=== PATIENT | female | born 1985 | race Hispanic/Latino ===

== ENCOUNTER 2018-04-21 16:57 | Inpatient (IN) | payer OTHER ==
[2018-04-21 17:22] VITALS: BP 120/68
[2018-04-21] MEDS ORDERED: COLACE PO PRN (19:08)
[2018-04-21] MEDS ORDERED: SODIUM CHLORIDE FLUSH SYRINGE 10 ML IV PRN (19:08)
[2018-04-21] MEDS ORDERED: TYLENOL PO PRN (19:08)
[2018-04-21] MEDS ORDERED: ALUM-MAG HYDROX-SIMETH 200-200-20MG/5ML PO PRN (19:08)
--- NOTE | 2018-04-21 19:08 | History and Physical Report ---
History of Present Illness Date of examination: 04/21/18 Date of admission: 04/21/18 16:57 Chief complaint: withdrawl symptoms History of present illness: Pt presents to office visit today for routine visits and admits to h/o oxycodone use for the past year daily and during and she did not reveal this until today in the office. She has been getting routine care, however, providers were not aware of her drug use. The facility where she was getting her drugs was "closed when I went on Tuesday" and she had not taken any medications since this time. She c/o having nausea, diarrhea, feeling her skin crawling,and body aches. Pt d/w Dr. Deras when recommended admission for initiation of treatment and subsequent placement in treatment facility. Methadone 30mg q day is what is recommended as starting dose by MFM(full consultation to follow.) Pt also a dvised of treatment plan. Her family including FOC is not aware of her use and with drawl sx nor reason for admission at time of visit in the office. She was encouraged to d/w with family so that she may have the support that is needed for treatment and the . She expressed understanding and states she would discuss with her family. EDC Calculations LMP: 08/25/2018 EDC Confirmation: 08/25/2018 Gestational Age: 12 4/7 weeks Past History : 2 Term Births: 0 Premature Births: 0 Living Children: 0 Para: 0 Mult. Births: 0 Prev : 0 Aborta: 1 Elect. Ab: 0 Spont. Ab: 1 # 1 Delivery date: 2014 Weeks Gestation: 8 Delivery type: SAB Comments: No D&C done Past Medical History: Scoliosis Past Surgical History: Negative Past Surgical History Social History: Marital Status: Engaged Children: 0 Occupation: Unemployed Risk Factors: Smoked Tobacco Use: Never smoker Alcohol use: yes Drinks per day: social Past Medical History Surgery (Non-rn training): Negative Past Surgical History Abnormal PAP: negative HERNAN Exposure: negative Infertility: negative Uterine Anomaly: negative Uterine Surgery (not C/S): negative Other Gynecologic Problems: negative Social Hx: Marital Status: Engaged Children: 0 Occupation: Unemployed Past History Past Medical History: other (see hpi) Past Surgical History: other (see hpi) [employer] SALES History: other (see hpi) Social history: single (engaged), prescription drug abuse - Obstetrical History Expected Date of Delivery: 08/25/18 Actual Gestation: 22 Week(s) 0 Day(s) : 2 Medications and Allergies Allergies Allergy/AdvReac Type Severity Reaction Status Date / Time Penicillins Allergy Angioedema Verified 04/21/18 18:50 Home Medications Medication Instructions Recorded Confirmed Last Taken Type Formula Tablet 1 tab PO BID 04/21/18 04/21/18 04/21/18 11:00 History - Vital Signs Vital signs: Vital Signs Pulse Pulse Ox 78 97 04/21/18 17:18 04/21/18 17:18 Temp Pulse Resp BP Pulse Ox 83 120/68 96 04/21/18 18:33 04/21/18 17:21 04/21/18 18:33 - Physical Exam Cardiovascular: Normal S1, Normal S2 Lungs: Positive: Clear to auscultation, Normal air movement Abdomen: Positive: normal appearance, soft. Negative: distention, tenderness, guarding Genitourinary (Female): Positive: other (deferred) Results All other labs normal. Assessment and Plan - Patient Problems (1) 22 weeks gestation of Current Visit: Yes Status: Acute (2) Opioid use with withdrawal Current Visit: Yes Status: Acute Plan to address problem: -MFM CONSULTATION -PSYCH CONSULTATION -WILL START METHADONE 30MG Q DAY PER MFM RECOMMENDATIONS BY DR. DERAS (FULL CONSUL TO FOLLOW)
[2018-04-21] MEDS ORDERED: REGLAN IV PRN (19:14)
[2018-04-21] MEDS ORDERED: LACTATED RINGERS 1,000 ML IV SCH (20:00)
[2018-04-21] MEDS ORDERED: DOLOPHINE PO SCH (21:00)
--- NOTE | 2018-04-21 21:26 | Event Note ---
Date: 04/21/18 RN went to [facility] and get pt labs and she was not in the room. The hospital gown was in the room and all of pt belongings were gone. This was over an hour ago. Pt still has not returned to the room. Methadone came down from pharm and pharmacy personel was advised pt is gone and will be called back for the meds should she return. He expressed understanding and made note of this. I will attempt to call pt to find out where she has gone to. She was in the room almost an hour prior to leaving the room.
[2018-04-22] MEDS ORDERED: PRENATAL VITAMIN PO SCH (10:00)
== END 2018-04-21 20:00 | disposition home or self-care (01) | DRG 781 ==
LOC: LD 16:57 → UNDODISIN 20:00
PROVIDERS: ADMIT Obstetrics & Gynecology; ATTEND Obstetrics & Gynecology
DX: O99.321 Drug use complicating pregnancy, first trimester (principal); F11.93 Opioid use, unspecified with withdrawal; Z3A.12 12 weeks gestation of pregnancy; Z88.0 Allergy status to penicillin
CPT/HCPCS: G0378; J7120

== ENCOUNTER 2018-05-02 17:24 | Outpatient (CLI) | payer OTHER ==
[2018-05-02] MEDS ORDERED: LACTATED RINGERS 500 ML IV ONE (18:17)
[2018-05-02 19:30] LABS: Bilirubin,Urine NEG (Negative); Blood,Urine NEG (Negative); Color,Urine Straw (Yellow); Protein,Urine <15 mg/dL mg/dL (Negative); Urobilinogen,Urine < 2.0 mg/dL (<2.0)
[2018-05-02 20:28] VITALS: BP 114/56
[2018-05-02] MEDS ORDERED: TYLENOL PO ONE (21:09)
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
== END 2018-05-02 22:10 | disposition home or self-care (01) ==
LOC: TRG 17:24
PROVIDERS: ATTEND Obstetrics & Gynecology
DX: O9A.212 Injury, poisoning and certain other consequences of external causes complicating pregnancy, second trimester (principal); Z3A.23 23 weeks gestation of pregnancy
CPT/HCPCS: 76815; 81001; 86850; 86900; 86901

== ENCOUNTER 2018-08-12 10:34 | Inpatient (IN) | payer OTHER ==
[2018-08-12 11:36] LABS: Hematocrit 34.1 % (30.3-42.9); Hemoglobin 11.7 gm/dl (10.1-14.3); Mean Corpuscular HGB Conc 34 % (30-34); Mean Corpuscular Volume 90 fl (79-97); Platelet Count 231 K/mm3 (140-440); Red Cell Distribution Width 13.9 % (13.2-15.2)
[2018-08-12] MEDS ORDERED: LACTATED RINGERS 1,000 ML ONE (11:56)
--- NOTE | 2018-08-12 11:59 | History and Physical Report ---
History of Present Illness Date of examination: 08/12/18 Date of admission: 08/12/18 10:34 History of present illness: Patient presents to labor and delivery with complaints of ruptured membranes at approximately 0500. initial exam in triage by RN revealed grossly ruptured membranes with cervix dilated 3 cm. Patient's course complicated by opiate withdrawal and positive cannabis on urine drug. Menstrual History Regularity: regular Duration: 4-5 LMP: 11/18/2017 LMP reliability: definite LMP character: normal test type: urine test Date: 02/14/2018 BC at conception: none Planned ? no EDC Calculations LMP: 08/25/2018 EDC Confirmation: 08/25/2018 Past History : 2 Term Births: 0 Premature Births: 0 Living Children: 0 Para: 0 Mult. Births: 0 Prev : 0 Aborta: 1 Elect. Ab: 0 Spont. Ab: 1 # 1 Delivery date: 2014 Weeks Gestation: 8 Delivery type: SAB Comments: No D&C done Past Medical History: Scoliosis Past Surgical History: Negative Past Surgical History Social History: Marital Status: Engaged Children: 0 Occupation: Unemployed Risk Factors: Smoked Tobacco Use: Never smoker Alcohol use: yes Drinks per day: social Past Medical History Surgery (Non-purchasing intern): Negative Past Surgical History Abnormal PAP: negative HERNAN Exposure: negative Infertility: negative Uterine Anomaly: negative Uterine Surgery (not C/S): negative Other Gynecologic Problems: negative Social Hx: Marital Status: Engaged Children: 0 Occupation: Unemployed Infection History Hx of STD: none Genetic History Congenital Heart Defect: Mom: no Dad: no Mahogany Disease: Mom: no Dad: no Thalassemia Mom: no Dad: no Neural Tube Defect Mom: no Dad: no Down's Syndrome Mom: no Dad: no Jb-Sachs Mom: no Dad: no Sickle Cell Disease/Trait Mom: no Dad: no Hemophilia Mom: no Dad: no Muscular Dystrophy Mom: no Dad: no Cystic Fibrosis Mom: no Dad: no Millard Chorea Mom: no Dad: no Mental Retardation Mom: no Dad: no Fragile X Mom: no Dad: no Other Genetic/Chromosomal Disorder Mom: no Dad: no Child w/other defect Mom: no Dad: no Enviromental Exposures Xray Exposure: no Medication, drug, or alcohol use since LMP: no Chemical/Other Exposure: no Exposure to Cat Liter: no Hx of Parvovirus (Fifth Disease): no Current Allergies (reviewed today): * PENICILLIN (Critical) Past History Past Medical History: other (see HPI) Past Surgical History: other (see HPI) APPLIQUER History: other (see HPI) Family/Genetic History: other (see HPI) Social history: prescription drug abuse, full code - Obstetrical History Expected Date of Delivery: 08/25/18 Actual Gestation: 38 Week(s) 1 Day(s) : 2 Para: 0 Hx # Term Pregnancies: 0 Number of Pregnancies: 0 Spontaneous Abortions: 1 Induced : 0 Number of Living Children: 0 Medications and Allergies Allergies Allergy/AdvReac Type Severity Reaction Status Date / Time Penicillins Allergy Angioedema Verified 04/21/18 18:50 Home Medications Medication Instructions Recorded Confirmed Last Taken Type Formula Tablet 1 tab PO BID 04/21/18 04/21/18 04/21/18 11:00 History - Vital Signs Vital signs: Vital Signs Temp 98.2 F 08/12/18 11:46 Temp Pulse Resp BP Pulse Ox 98.2 F 96 H 133/80 08/12/18 11:46 08/12/18 11:49 08/12/18 11:49 - Physical Exam Breasts: Positive: deferred Cardiovascular: Regular rate Lungs: Positive: Normal air movement Abdomen: Positive: normal appearance, soft Cervix: Positive: other (per RN) Results Result Diagrams: 08/12/18 11:25 All other labs normal. Assessment and Plan - Patient Problems (1) 38 weeks gestation of Current Visit: Yes Status: Acute (2) Premature rupture of membranes Current Visit: Yes Status: Acute Qualifiers: PROM onset of labor timing: onset of labor within 24 hours of rupture PROM gestational age: full term Qualified Code(s): O42.02 - Full-term premature rupture of membranes, onset of labor within 24 hours of rupture Plan to address problem: We'll admit follow labor and delivery protocol. Please see orders (3) History of drug abuse Current Visit: Yes Status: Acute Plan to address problem: Will perform urine drug screen (4) Active labor at term Current Visit: Yes Status: Acute
[2018-08-12] MEDS ORDERED: BRETHINE SUB-Q PRN (12:02)
[2018-08-12] MEDS ORDERED: BRETHINE IVP PRN (12:02)
[2018-08-12] MEDS ORDERED: PHENERGAN PO PRN (12:02)
[2018-08-12] MEDS ORDERED: XYLOCAINE 2% INFILTRATI ONE (12:02)
[2018-08-12] MEDS ORDERED: LACTATED RINGERS 1,000 ML IV SCH (13:00)
[2018-08-12] MEDS ORDERED: PITOCin/NS 20 UNIT/1000ML DRIP 20 UNITS/1,000 ML BAG IV SCH (13:00)
[2018-08-12 14:51] LABS: Amphetamine Screen,Urine PRESUMPTIVE NEGATIVE; Benzodiazepines Screen,Urine PRESUMPTIVE NEGATIVE; Cocaine Screen,Urine PRESUMPTIVE NEGATIVE; Methadone Screen,Urine PRESUMPTIVE NEGATIVE; Opiate Screen,Urine PRESUMPTIVE NEGATIVE
[2018-08-12 15:03] LABS: Cannabinoid Screen,Urine PRESUMPTIVE POSITIVE
[2018-08-12] MEDS ORDERED: PITOCin/NS 30 UNIT/500ML 30,000 MILLIUNITS/500 ML BAG IV ONE (15:24)
[2018-08-12] MEDS ORDERED: STADOL IV ONE (16:12)
[2018-08-12] MEDS ORDERED: NARCAN 2 MG/2 ML IV PRN (18:09)
--- NOTE | 2018-08-12 18:16 | Anesthesia Consultation ---
Anesthesia Consult and Med Hx Date of service: 08/12/18 - Airway Anesthetic Teeth Evaluation: Good ROM Head & Neck: Adequate Mental/Hyoid Distance: Adequate Mallampati Class: Class II Intubation Access Assessment: Probably Good - Pulmonary Exam CTA: Yes - Cardiac Exam Cardiac Exam: RRR - Pre-Operative Health Status ASA Pre-Surgery Classification: ASA2 Proposed Anesthetic Plan: Epidural, Spinal - Pulmonary Hx Smoking: No Hx Asthma: No Hx Respiratory Symptoms: No SOB: No COPD: No Home Oxygen Therapy: No Hx Pneumonia: No Hx Sleep Apnea: No - Cardiovascular System Hx Hypertension: No Hx Coronary Artery Disease: No Hx Heart Attack/AMI: No Hx Angina: No Hx Percutaneous Transluminal Coronary Angioplasty (PTCA): No Hx Cardia Arrhythmia: No Hx Pacemaker: No Hx Internal Defibrillator: No Hx Valvular Heart Disease: No Hx Heart Murmur: No Hx Peripheral Vascular Disease: No - Central Nervous System Hx Neuromuscular Disorder: No Hx Seizures: No CVA: No Hx Back Pain: No Hx Psychiatric Problems: No - Gastrointestinal Hx Ulcer: No Hx Gastroesophageal Reflux Disease: Yes - Endocrine Hx Renal Disease: No Hx End Stage Renal Disease: No Hx Cirrhosis: No Hx Liver Disease: No Hx Insulin Dependent Diabetes: No Hx Non-Insulin Dependent Diabetes: No Hx Thyroid Disease: No Hx Hypothyroidism: No Hx Hyperthyroidism: No - Hematic Hx Anemia: No Hx Sickle Cell Disease: No - Other Systems Hx Alcohol Use: Yes Hx Substance Use: No Hx Cancer: No Hx Obesity: No
[2018-08-12] MEDS ORDERED: fentaNYL-BUPIV 2 MCG/ML-0.125% 200 MCG/100 ML BAG EPIDURAL SCH (19:00)
--- NOTE | 2018-08-12 20:34 | Event Note ---
Date: 08/12/18 Patient's labor progressed at augmenting the Pitocin. Patient urine drug screen did return positive for cannabis. We'll have social service consult after delivery. Patient received epidural with cervical dilatation around 7 cm. Patient did have some variable decelerations to the epidural trace now much improved and patient now is completely dilated and effaced +1 station. We'll start pushing.
--- NOTE | 2018-08-12 22:07 | Procedure Note ---
OB Delivery Note - Delivery Date of Delivery: 08/12/18 Surgeon: BETO BUNCH Estimated blood loss: 300cc - Vaginal Delivery presentation: vertex Delivery position: OA Delivery augmentation: pitocin Delivery monitor: external FHT, external uterine Route of delivery: Delivery placenta: spontaneous Delivery cord: nuchal cord Episiotomy: none Delivery laceration: 2nd degree Delivery repair: vicryl Anesthesia: epidural - Infant A at 1 minute: 8 at 5 minutes: 9 Infant Gender: Male (6lbs 13oz)
[2018-08-12] MEDS ORDERED: IBUPROFEN PO ONE (22:47)
[2018-08-13] MEDS ORDERED: TYLENOL PO PRN (02:02)
[2018-08-13] MEDS ORDERED: TUCKS PAD TP PRN (02:02)
[2018-08-13] MEDS ORDERED: BENADRYL PO PRN (02:02)
[2018-08-13] MEDS ORDERED: MILK OF MAGNESIA PO PRN (02:02)
[2018-08-13] MEDS ORDERED: PHENERGAN PO PRN (02:02)
[2018-08-13] MEDS ORDERED: DULCOLAX PR PRN (02:02)
[2018-08-13] MEDS ORDERED: LANSINOH TP PRN (02:02)
[2018-08-13] MEDS ORDERED: SODIUM CHLORIDE FLUSH SYRINGE 10 ML IV NR (02:02)
[2018-08-13] MEDS: IBUPROFEN PO SCH ×4 (03:54→23:48)
[2018-08-13 09:47] LABS: Hematocrit 29.9 % (30.3-42.9); Hemoglobin 10.1 gm/dl (10.1-14.3)
[2018-08-13] MEDS: COLACE PO SCH ×2 (10:00→21:11)
[2018-08-13] MEDS ORDERED: PRENATAL VITAMIN PO SCH (10:00)
--- NOTE | 2018-08-13 14:35 | Progress Note ---
Assessment and Plan - Patient Problems (1) 38 weeks gestation of Current Visit: Yes Status: Resolved (2) Premature rupture of membranes Current Visit: Yes Status: Acute Qualifiers: PROM onset of labor timing: onset of labor within 24 hours of rupture PROM gestational age: full term Qualified Code(s): O42.02 - Full-term premature rupture of membranes, onset of labor within 24 hours of rupture (3) History of drug abuse Current Visit: Yes Status: Acute Plan to address problem: Awaiting social work faculty member consult (4) Active labor at term Current Visit: Yes Status: Resolved (5) Encounter for full-term uncomplicated delivery Current Visit: Yes Status: Acute Plan to address problem: Continue routine care Subjective - Subjective Interval history: day #1. Patient without nausea vomiting. Patient tolerating diet well Patient without fever. Infant is doing well. Will continue routine care. Patient's hematocrit is 29.9%. Patient is breast-feeding. : doing well Objective - Vital Signs Latest vital signs: Vital Signs Temp Pulse Resp BP BP Pulse Ox 08/13/18 12:01 97.7 F 64 18 113/59 98 08/13/18 08:17 97.7 F 73 18 114/54 97 08/13/18 05:24 98.9 F 62 20 105/60 97 08/12/18 23:51 98.2 F 68 20 120/55 96 08/12/18 22:49 70 97 08/12/18 22:41 76 118/59 08/12/18 22:31 75 98 08/12/18 22:26 71 117/60 98 08/12/18 22:21 75 97 08/12/18 22:16 82 96 08/12/18 22:11 81 125/59 98 08/12/18 22:06 80 98 08/12/18 21:56 92 H 128/78 08/12/18 21:55 89 97 08/12/18 20:44 64 99 08/12/18 20:39 68 99 08/12/18 20:35 50 L 91 08/12/18 20:34 67 99 08/12/18 20:32 75 119/65 08/12/18 20:29 89 98 08/12/18 20:27 79 122/63 08/12/18 20:24 73 98 08/12/18 20:21 75 116/71 08/12/18 20:19 69 98 08/12/18 20:17 62 114/70 08/12/18 20:14 71 97 08/12/18 20:12 63 114/68 08/12/18 20:09 65 98 08/12/18 20:08 77 120/73 08/12/18 20:04 66 98 08/12/18 20:01 74 120/67 08/12/18 19:59 83 97 08/12/18 19:56 79 115/78 08/12/18 19:54 88 100 08/12/18 19:51 62 122/86 08/12/18 19:49 61 100 08/12/18 19:47 61 114/74 08/12/18 19:44 60 99 08/12/18 19:42 61 115/68 08/12/18 19:39 72 99 08/12/18 19:36 80 128/86 08/12/18 19:34 73 99 08/12/18 19:30 63 112/75 08/12/18 19:29 64 100 08/12/18 19:26 63 113/77 08/12/18 19:24 65 100 08/12/18 19:22 70 114/77 08/12/18 19:19 72 99 08/12/18 19:16 67 119/73 08/12/18 19:14 66 98 08/12/18 19:12 67 117/71 08/12/18 19:09 63 99 08/12/18 19:05 67 124/75 08/12/18 19:04 67 98 08/12/18 19:01 67 120/76 08/12/18 18:59 76 98 08/12/18 18:56 98.0 F 72 126/72 88 08/12/18 18:55 98.0 F 08/12/18 18:54 67 99 08/12/18 18:52 76 125/77 08/12/18 18:49 87 100 08/12/18 18:46 65 121/71 08/12/18 18:44 60 100 08/12/18 18:41 61 118/76 08/12/18 18:39 62 100 08/12/18 18:35 62 115/73 08/12/18 18:34 63 100 08/12/18 18:32 57 L 114/71 08/12/18 18:29 74 99 08/12/18 18:26 59 L 126/73 08/12/18 18:24 57 L 100 08/12/18 18:22 72 119/78 08/12/18 18:19 61 116/60 97 08/12/18 18:14 59 L 97 08/12/18 18:12 62 115/70 08/12/18 18:09 79 97 08/12/18 18:06 64 120/77 08/12/18 18:04 87 97 08/12/18 18:00 98.0 F 64 119/73 08/12/18 17:59 67 97 08/12/18 17:57 62 127/86 08/12/18 17:54 63 124/81 08/12/18 17:51 76 120/81 08/12/18 17:48 100 H 121/82 08/12/18 17:45 85 125/81 08/12/18 16:50 60 115/69 08/12/18 15:49 75 121/84 08/12/18 14:48 74 115/68 Intake and Output 08/12/18 08/13/18 08/13/18 22:59 06:59 14:59 Intake Total 20.200 480 Output Total 1500 Balance 20.200 -1020 Intake: IV 20.200 PITOCin/NS 30 UNIT/500ML 20.200 30,000 milliunits In 500 ml @ 4 MILLIUNITS/MIN 4 mls/hr IV DIRECT ONE Rx#:[id number] Oral 480 Output: Urine 1500 Void 1500 Other: Total, Intake Amount 240 Total, Output Amount 800 Estimated Blood Loss 300 - Exam Breasts: Present: deferred Cardiovascular: Present: Regular rate Lungs: Present: Normal air movement Abdomen: Present: normal appearance, normal bowel sounds Extremities: Present: normal - Labs Labs: Abnormal lab results 08/13/18 Range/Units 09:24 Hct 29.9 L (30.3-42.9) %
[2018-08-14] MEDS: IBUPROFEN PO SCH (05:12)
[2018-08-14] MEDS ORDERED: BOOSTRIX IM ONE (06:00)
--- NOTE | 2018-08-14 08:00 | Progress Note ---
Assessment and Plan PPD2. Patient reports feeling well, denies any complaints or concerns. Fundus is firm, ML, U/1. Vaginal bleeding is scant, patient denies any clots or heavy bleeding. Patient reports pain is well controlled with Ibu. VSSAF. Awaiting CM to see patient for +thc UDS on admission. Subjective - Subjective Date of service: 08/14/18 Principal diagnosis: PPD2 s/p Patient reports: appetite normal, voiding normally, pain well controlled, ambulating normally : doing well Objective - Vital Signs Latest vital signs: Vital Signs Temp Pulse Resp BP BP Pulse Ox 08/13/18 23:35 98.5 F 76 20 117/70 95 08/13/18 16:35 97.9 F 60 18 126/53 97 08/13/18 12:01 97.7 F 64 18 113/59 98 08/13/18 08:17 97.7 F 73 18 114/54 97 Intake and Output 08/13/18 08/13/18 08/14/18 15:59 23:59 07:59 Intake Total 240 Balance 240 Intake: Oral 240 Other: Total, Intake Amount 240 # Voids Void 1 1 - Exam Breasts: Present: normal Cardiovascular: Present: Regular rate, Normal S1, Normal S2 Lungs: Present: Clear to auscultation Abdomen: Present: normal appearance, soft, normal bowel sounds Vulva: both: normal Uterus: Present: normal, bogginess Extremities: Present: normal - Labs Labs: Abnormal lab results 08/13/18 Range/Units 09:24 Hct 29.9 L (30.3-42.9) %
[2018-08-14 08:45] VITALS: BP 113/75
--- NOTE | 2018-08-14 12:25 | Discharge Summary ---
Providers - Providers Date of Admission: 08/12/18 10:34 Date of discharge: 08/14/18 Attending physician: BETO BUNCH 08/13/18 02:02 Consult to Case Management [CONS] Routine Services Needed at Discharge: Jewel Waxer Notified:: Oksana Phone number called:: [phone] Consult to Furnace Roaster [CONS] Routine Reason For Exam: assistance with , SNS CM consult complete. OK'd for discharge. Primary care physician: BETO BUNCH Hospitalization Reason for admission: active labor Delivery: Episiotomy: none Laceration: 2nd degree complications: none Discharge diagnosis: IUP at term delivered baby: male Pertinent studies: post delivery H&H 10.04/11.9 Hospital course: uncomplicated delivery and course Condition at discharge: Good Disposition: DC-01 TO HOME OR SELFCARE Plan - Discharge Medications Prescriptions: Lidocain2.5%/Prilocai2.5% [Emla] 5 gm TP ONCE #1 tube - Provider Discharge Summary Activity: routine, no sex for 6 weeks, no heavy lifting 4 weeks, no strenuous exercise Diet: routine Instructions: routine Additional instructions: [] Smoking cessation referral if applicable(refer to patient education folder for contact #) [] Refer to [facility] Booklet Call your doctor immediately for: * Fever > 100.5 * Heavy vaginal bleeding ( >1 pad per hour) * Severe persistent headache * Shortness of breath * Reddened, hot, painful area to leg or breast * Drainage or odor from incision. * Keep incision clean and dry at all times and follow doctor's instructions regarding bathing/showering - Follow up plan Follow up: BETO BUNCH MD [Primary Care Provider] - 6 Weeks (Congratulations! Please call [phone] to schedule your appointment in 6 weeks. Please schedule your son's circumcision appointment in 1 week. Bring EMLA cream with you to his appointment and await further instructions for use. Call with any questions or concerns.) Forms: [facility] Discharge Summary
== END 2018-08-14 13:15 | disposition home or self-care (01) | DRG 775 ==
LOC: LD 10:34 → OB 08-13 00:38
PROVIDERS: ADMIT Obstetrics & Gynecology; ATTEND Obstetrics & Gynecology
PROC: 10E0XZZ Delivery of Products of Conception, External Approach (ICD-10-PCS; principal; 2018-08-12)
PROC: 0KQM0ZZ Repair Perineum Muscle, Open Approach (ICD-10-PCS; 2018-08-12)
PROC: 3E0R3BZ Introduction of Anesthetic Agent into Spinal Canal, Percutaneous Approach (ICD-10-PCS; 2018-08-12)
PROC: 00HU33Z Insertion of Infusion Device into Spinal Canal, Percutaneous Approach (ICD-10-PCS; 2018-08-12)
PROC: 3E0234Z Introduction of Serum, Toxoid and Vaccine into Muscle, Percutaneous Approach (ICD-10-PCS; 2018-08-14)
DX: O42.02 Full-term premature rupture of membranes, onset of labor within 24 hours of rupture (principal); O99.324 Drug use complicating childbirth; F12.10 Cannabis abuse, uncomplicated; O62.0 Primary inadequate contractions; O76 Abnormality in fetal heart rate and rhythm complicating labor and delivery; O69.81X0 Labor and delivery complicated by cord around neck, without compression, not applicable or unspecified; O70.1 Second degree perineal laceration during delivery; Z37.0 Single live birth; Z23 Encounter for immunization; Z3A.38 38 weeks gestation of pregnancy
CPT/HCPCS: 36415; 80307; 85014; 85018; 85027; 86592; 86850; 86900; 86901; 90471; 90715; G0378; J0595; J2590; J7120